=== PATIENT | female | born 1970 | race Caucasian/White ===

== ENCOUNTER 2023-04-12 22:33 | Emergency (ER) | payer MEDICAID, SELFPAY ==
[2023-04-12 22:39] VITALS: BP 112/73; PULSE 114; RESP 20; TEMP 36.5; O2SAT 98; BMI 38.7
--- NOTE | 2023-04-12 22:43 | ECG_ITS ---
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 Measurements Intervals [place] Rate: 109 P: 48 ME: 155 QRS: 64 QRSD: 75 T: 73 QT: 326 QTc: 439 Interpretive Statements SINUS TACHYCARDIA ABNORMAL RHYTHM ECG No previous ECG available for comparison Electronically Signed On 04-13-2023 14:18:10 PERITONEAL DIALYSIS REGISTERED NURSE by Denny Ambrose M.D. [id number]
--- NOTE | 2023-04-12 22:54 | ECG_ITS ---
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 Measurements Intervals [place] Rate: 77 P: 51 AK: 176 QRS: 41 QRSD: 86 T: 60 QT: 369 QTc: 420 Interpretive Statements SINUS RHYTHM LOW QRS VOLTAGE IN PRECORDIAL LEADS [QRS DEFLECTION < 1.0 mV IN CHEST LEADS] Compared to ECG 04/12/2023 22:49:56 Low QRS voltage now present Sinus tachycardia no longer present Electronically Signed On 04-13-2023 14:18:21 BLOCK CLEANER by Denny Ambrose M.D. [id number]
--- NOTE | 2023-04-12 23:13 | ED_ITS ---
Documented by User: GAIL Fernández 04/15/23 13:16 HPI - Chest Pain 2 General: Chief Complaint: Chest Pain Stated Complaint: Chest Pains Time Seen by Provider: 04/12/23 23:02 History of Present Illness: 52-year-old female comes in today with c omplaints of shortness of breath. Patient reports for the last 2 days she feels like she just cannot get her breath. Patient has a history of rheumatoid arthritis, high blood pressure, coronary artery disease, pulmonary embolism. Patient routinely smokes tobacco and THC. Patient is on Eliquis routinely for blood thinner. Patient's primary care is at the [facility] in [facility]. 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 Associated symptoms: Reports dyspnea Review of Systems 2 General: Reports: 10 or more systems reviewed and unremarkable except in HPI and below Resp: Reports: dyspnea Physical Exam 2 Const: COMMON NORMALS: alert HENMT: COMMON NORMALS: normocephalic HEAD & SCALP: normocephalic THROAT: posterior oropharynx normal Neck/C-Spine: COMMON NORMALS: full ROM Resp: COMMON NORMALS: normal respiratory effort and clear to auscultation bilaterally AUSCULTATION: clear to auscultation bilaterally Cardio: COMMON NORMALS: regular rhythm RATE: tachycardic RHYTHM: regular rhythm GI: PALPATION: No Tenderness to palpation present (GI) Back/Pelvis: COMMON NORMALS: thoracic and lumbar spine normal to inspection Extremity: COMMON NORMALS: full ROM Neuro: SENSORIUM/ORIENTATION: Yes alert Skin: COMMON NORMALS: turgor normal GENERAL SKIN EXAM: turgor normal Course 2 Vital Signs: Vital signs: Vital Signs Temperature 97.7 F 04/12/23 22:39 Pulse Rate 107 H 04/13/23 02:54 Respiratory Rate 17 04/13/23 02:54 Blood Pressure 132/94 04/13/23 02:54 Pulse Oximetry 96 04/13/23 02:54 Oxygen Delivery Me thod Room Air 04/13/23 01:30 MDM - Chest Pain Medical Decision Making 52-year-old female comes in today with shortness of breath x 2 days. Patient appears mildly unwell but not toxic. Patient appears no pain. Respirations are even lungs are clear to auscultation. Patient has some nasal congestion. Vital signs are normal except for some mild elevation in pulse of 114. Differential diagnosis includes but not limited to CHF, pneumonia, viral respiratory infection, upper respiratory infection, anxiety. Lab Data 04/12/23 23:17 04/12/23 23:17 Radiology Impressions Chest X-Ray 04/12/23 23:14 IMPRESSION: No acute findings. Laboratory Results WBC 8.34 10^3/uL (3.29-11.43) 04/12/23 23:17 RBC 5.12 10^6/uL (3.85-5.65) 04/12/23 23:17 Hgb 16.30 g/dL (11.27-16.99) 04/12/23 23:17 Hct 47.1 % (36-47) H 04/12/23 23:17 MCV 92.0 fl (85-98) 04/12/23 23:17 MCH 31.8 pg (27-33) 04/12/23 23:17 MCHC 34.6 g/dL (30-55) 04/12/23 23:17 RDW 12.5 % (12.1-15.1) 04/12/23 23:17 Plt Count 259 10^3/cmm (157-399) 04/12/23 23:17 MPV 10.1 fL (7.4-10.4) 04/12/23 23:17 Neut % (Auto) 61.7 % 04/12/23 23:17 Lymph % (Auto) 27.8 % 04/12/23 23:17 [place] % (Auto) 8.9 % 04/12/23 23:17 Eos % (Auto) 0.7 % 04/12/23 23:17 Baso % (Auto) 0.7 % 04/12/23 23:17 Neut # (Auto) 5.14 10^3/uL (1.8-7.7) 04/12/23 23:17 Lymph # (Auto) 2.3 10^3/uL (0.8-4.8) 04/12/23 23:17 [place] # (Auto) 0.7 10^3/uL (0.2-0.9) 04/12/23 23:17 Eos # (Auto) 0.1 10^3/uL (0.0-0.8) 04/12/23 23:17 Baso # (Auto) 0.1 10^3/uL (0.0-0.1) 04/12/23 23:17 Nucleated RBC % (auto) 0 % 04/12/23 23:17 Nucleated RBCs # 0.0 /100WBC 04/12/23 23:17 PT 15.90 SECONDS (12.1-14.9) H 04/12/23 23:17 INR 1.23 (0.8-1.2) H 04/12/23 23:17 APTT 33.7 SECONDS (23.9-36.7) 04/12/23 23:17 Sodium 136 mmol/L (136-145) 04/12/23 23:17 Potassium 4.0 mmol/L (3.5-5.1) 04/12/23 23:17 Chloride 100 mmol/L (98-107) 04/12/23 23:17 Carbon Dioxide 21 mmol/L (22-29) L 04/12/23 23:17 Anion Gap 19.0 (5-19) 04/12/23 23:17 BUN 16 mg/dL (6-20) 04/12/23 23:17 Creatinine 0.5 mg/dL (0.5-0.9) 04/12/23 23:17 GFR Calculation 129.1 mL/min (90-130) 04/12/23 23:17 Glucose 90 mg/dL (65-115) 04/12/23 23:17 Calculated Osmolality 283 mOsm/kg (285-295) L 04/12/23 23:17 Calcium 9.4 mg/dL (8.5-10.5) 04/12/23 23:17 Total Bilirubin 0.7 mg/dL (0.15-1.2) 04/12/23 23:17 AST 28 U/L (0-32) 04/12/23 23:17 ALT 23 U/L (0-33) 04/12/23 23:17 Alkaline Phosphatase 85 U/L (35-105) 04/12/23 23:17 Troponin T Baseline 20 ng/L (0-10) H 04/12/23 23:17 Troponin T 120 Minute 17.42 ng/L (0-10) H 04/13/23 01:35 Delta Troponin T -2.58 ABS# (0-10) L 04/13/23 01:35 NT-Pro-B Natriuret Pep 221 pg/mL (0-125) H 04/12/23 23:17 Total Protein 7.6 g/dL (6.6-8.7) 04/12/23 23:17 Albumin 4.1 g/dL (3.5-5.2) 04/12/23 23:17 Globulin 3.5 g/dL (1.3-4.6) 04/12/23 23:17 Influenza Type A Ag negative (Negative) 04/13/23 00:35 Influenza Type B Ag negative (Negative) 04/13/23 00:35 SARS-CoV-2 Ag (Rapid) negative (Negative) 04/13/23 00:35 Discharge Plan Discharge Patient Disposition: Home Clinical Impression: Congestion of upper airway Condition: Stable Prescriptions: New Mucinex 600 mg tablet extended release 12hr 600 mg PO Q12H PRN (Reason: congestion) Qty: 10 0RF albuterol sulfate 90 mcg/actuation HFA aerosol inhaler 2 inh INHALATION Q4H PRN (Reason: shortness of breath or wheezing) Qty: 6.7 1RF Discharge Orders: Discharge ED (Routine); Ordered 04/13/23 Ordered By: Calixto Painter Patient Instructions: Cold Symptoms (ED), Opioid Safety, Pain Management Activity Restrictions/Additional Instructions: The medicine given to you in the emergency department will help mobilize any extra fluid off your lungs. Take medication for airway congestion as directed. Use albuterol as needed for shortness of breath. Return for worsening symptoms despite treatment. See your doctor this week. Coding Level of Care Code ED Diesel Engine Pipe Fitter for Chg Fwd Documented by User: Calixto Painter, 04/13/23 05:46 HPI - Chest Pain 2 General: Chief Complaint: Chest Pain Stated Complaint: Chest Pains Time Seen by Provider: 04/12/23 23:02 Course 2 Vital Signs: Vital signs: Vital Signs Temperature 97.7 F 04/12/23 22:39 Pulse Rate 107 H 04/13/23 02:54 Respiratory Rate 17 04/13/23 02:54 Blood Pressure 132/94 04/13/23 02:54 Pulse Oximetry 96 04/13/23 02:54 Oxygen Delivery Me thod Room Air 04/13/23 01:30 MDM - Chest Pain Medical Decision Making 52-year-old female comes in today with shortness of breath x 2 days. Patient appears mildly unwell but not toxic. Patient appears no pain. Respirations are even lungs are clear to auscultation. Patient has some nasal congestion. Vital signs are normal except for some mild elevation in pulse of 114. Differential diagnosis includes but not limited to CHF, pneumonia, viral respiratory infection, upper respiratory infection, anxiety. This patient was originally seen by GAIL Gómez.? I agree with his history, evaluation, and treatment. Delta troponin is -2.5. She is given 40 mg of Lasix here. She is given an albuterol inhaler and Mucinex for the upper airway congestion. She will be allowed discharge. Return for worsening symptoms. Lab Data 04/12/23 23:17 04/12/23 23:17 Radiology Impressions Chest X-Ray 04/12/23 23:14 IMPRESSION: No acute findings. Laboratory Results WBC 8.34 10^3/uL (3.29-11.43) 04/12/23 23:17 RBC 5.12 10^6/uL (3.85-5.65) 04/12/23 23:17 Hgb 16.30 g/dL (11.27-16.99) 04/12/23 23:17 Hct 47.1 % (36-47) H 04/12/23 23:17 MCV 92.0 fl (85-98) 04/12/23 23:17 MCH 31.8 pg (27-33) 04/12/23 23:17 MCHC 34.6 g/dL (30-55) 04/12/23 23:17 RDW 12.5 % (12.1-15.1) 04/12/23 23:17 Plt Count 259 10^3/cmm (157-399) 04/12/23 23:17 MPV 10.1 fL (7.4-10.4) 04/12/23 23:17 Neut % (Auto) 61.7 % 04/12/23 23:17 Lymph % (Auto) 27.8 % 04/12/23 23:17 [place] % (Auto) 8.9 % 04/12/23 23:17 Eos % (Auto) 0.7 % 04/12/23 23:17 Baso % (Auto) 0.7 % 04/12/23 23:17 Neut # (Auto) 5.14 10^3/uL (1.8-7.7) 04/12/23 23:17 Lymph # (Auto) 2.3 10^3/uL (0.8-4.8) 04/12/23 23:17 [place] # (Auto) 0.7 10^3/uL (0.2-0.9) 04/12/23 23:17 Eos # (Auto) 0.1 10^3/uL (0.0-0.8) 04/12/23 23:17 Baso # (Auto) 0.1 10^3/uL (0.0-0.1) 04/12/23 23:17 Nucleated RBC % (auto) 0 % 04/12/23 23:17 Nucleated RBCs # 0.0 /100WBC 04/12/23 23:17 PT 15.90 SECONDS (12.1-14.9) H 04/12/23 23:17 INR 1.23 (0.8-1.2) H 04/12/23 23:17 APTT 33.7 SECONDS (23.9-36.7) 04/12/23 23:17 Sodium 136 mmol/L (136-145) 04/12/23 23:17 Potassium 4.0 mmol/L (3.5-5.1) 04/12/23 23:17 Chloride 100 mmol/L (98-107) 04/12/23 23:17 Carbon Dioxide 21 mmol/L (22-29) L 04/12/23 23:17 Anion Gap 19.0 (5-19) 04/12/23 23:17 BUN 16 mg/dL (6-20) 04/12/23 23:17 Creatinine 0.5 mg/dL (0.5-0.9) 04/12/23 23:17 GFR Calculation 129.1 mL/min (90-130) 04/12/23 23:17 Glucose 90 mg/dL (65-115) 04/12/23 23:17 Calculated Osmolality 283 mOsm/kg (285-295) L 04/12/23 23:17 Calcium 9.4 mg/dL (8.5-10.5) 04/12/23 23:17 Total Bilirubin 0.7 mg/dL (0.15-1.2) 04/12/23 23:17 AST 28 U/L (0-32) 04/12/23 23:17 ALT 23 U/L (0-33) 04/12/23 23:17 Alkaline Phosphatase 85 U/L (35-105) 04/12/23 23:17 Troponin T Baseline 20 ng/L (0-10) H 04/12/23 23:17 Troponin T 120 Minute 17.42 ng/L (0-10) H 04/13/23 01:35 Delta Troponin T -2.58 ABS# (0-10) L 04/13/23 01:35 NT-Pro-B Natriuret Pep 221 pg/mL (0-125) H 04/12/23 23:17 Total Protein 7.6 g/dL (6.6-8.7) 04/12/23 23:17 Albumin 4.1 g/dL (3.5-5.2) 04/12/23 23:17 Globulin 3.5 g/dL (1.3-4.6) 04/12/23 23:17 Influenza Type A Ag negative (Negative) 04/13/23 00:35 Influenza Type B Ag negative (Negative) 04/13/23 00:35 SARS-CoV-2 Ag (Rapid) negative (Negative) 04/13/23 00:35 All radiology interpretation(s) finalized by discharge Discharge Plan Discharge Patient Disposition: Home Clinical Impression: Congestion of upper airway Condition: Stable Prescriptions: New Mucinex 600 mg tablet extended release 12hr 600 mg PO Q12H PRN (Reason: congestion) Qty: 10 0RF albuterol sulfate 90 mcg/actuation HFA aerosol inhaler 2 inh INHALATION Q4H PRN (Reason: shortness of breath or wheezing) Qty: 6.7 1RF Discharge Orders: Discharge ED (Routine); Ordered 04/13/23 Ordered By: Calixto Painter Patient Instructions: Cold Symptoms (ED), Opioid Safety, Pain Management Activity Restrictions/Additional Instructions: The medicine given to you in the emergency department will help mobilize any extra fluid off your lungs. Take medication for airway congestion as directed. Use albuterol as needed for shortness of breath. Return for worsening symptoms despite treatment. See your doctor this week. Coding Level of Care Code ED Diesel Engine Pipe Fitter for Cruz Chow
--- NOTE | 2023-04-12 23:14 | XRR_ITS ---
PROCEDURE INFORMATION: Exam: XR Chest Exam date and time: 04/12/2023 11:17 PM Age: 52 years old Clinical indication: Shortness of breath; Patient HX: C/O SOB; Additional info: Short of breath TECHNIQUE: Imaging protocol: Radiologic exam of the chest. Views: 1 view. COMPARISON: No relevant prior studies available. FINDINGS: Lungs: Unremarkable. No consolidation. Pleural spaces: Unremarkable. No pleural effusion. No pneumothorax. Heart/Mediastinum: Unremarkable. No cardiomegaly. Bones/joints: Unremarkable. XR/XR chest 1V portable [id number] IMPRESSION: No acute findings.
[2023-04-12 23:35] LABS: Basophils # 0.1 10^3/uL (0.0-0.1); Basophils % 0.7 %; Eosinophils # 0.1 10^3/uL (0.0-0.8); Eosinophils % 0.7 %; Hematocrit 47.1 % (36-47); Lymphocytes # 2.3 10^3/uL (0.8-4.8); Lymphocytes % 27.8 %; Mean Corpuscular HGB Conc 34.6 g/dL (30-55); Mean Corpuscular Hemoglobin 31.8 pg (27-33); Mean Platelet Volume 10.1 fL (7.4-10.4); Monocytes # 0.7 10^3/uL (0.2-0.9); Monocytes % 8.9 %; Neutrophils # 5.14 10^3/uL (1.8-7.7); Neutrophils % 61.7 %; Nucleated Red Blood Cells % 0 %; Platelet Count 259 10^3/cmm (157-399); Red Blood Count 5.12 10^6/uL (3.85-5.65); Red Cell Distribution Width 12.5 % (12.1-15.1); White Blood Count 8.34 10^3/uL (3.29-11.43)
[2023-04-12 23:40] LABS: INR 1.23 (0.8-1.2)
[2023-04-12 23:41] LABS: Partial Thromboplastin Time 33.7 SECONDS (23.9-36.7)
[2023-04-12 23:51] LABS: Troponin(5th) Baseline 20 ng/L (0-10)
[2023-04-12 23:56] LABS: Alanine Aminotransferase 23 U/L (0-33); Albumin Level 4.1 g/dL (3.5-5.2); Alkaline Phosphatase 85 U/L (35-105); Aspartate Amino Transferase 28 U/L (0-32); Blood Urea Nitrogen 16 mg/dL (6-20); Calcium 9.4 mg/dL (8.5-10.5); Carbon Dioxide 21 mmol/L (22-29); Chloride 100 mmol/L (98-107); Creatinine Clr Calc Pharmacy 162.5355; Globulin 3.5 g/dL (1.3-4.6); Glomerular Filtration Rate 129.1 mL/min (90-130); Glucose 90 mg/dL (65-115); NT Pro B Type Natriuretic Pept 221 pg/mL (0-125); Osmolality Calculated 283 mOsm/kg (285-295); Sodium 136 mmol/L (136-145); Total Bilirubin 0.7 mg/dL (0.15-1.2); Total Protein 7.6 g/dL (6.6-8.7)
[2023-04-13 01:01] LABS: Influenza A by IFA negative (Negative); Influenza B by IFA negative (Negative); SARS Covid-2 Antigen negative (Negative)
[2023-04-13 01:15] VITALS: BP 107/81; PULSE 96; RESP 15; O2SAT 94
[2023-04-13 01:30] VITALS: BP 110/66; PULSE 67; RESP 12; O2SAT 96
[2023-04-13 02:11] LABS: Troponin 5 2HR 17.42 ng/L (0-10)
[2023-04-13 02:13] LABS: Troponin 5 2HR Delta -2.58 ABS# (0-10)
[2023-04-13 02:54] VITALS: BP 132/94; PULSE 107; RESP 17; O2SAT 96
== END 2023-04-13 02:57 | disposition home or self-care (01) ==
PROVIDERS: Nurse Practitioner Family; Emergency Provider Emergency Medicine
DX: R09.81 Nasal congestion (principal); Z11.52 Encounter for screening for COVID-19
CPT/HCPCS: 36415; 71045; 80053; 83880; 84484; 85025; 85610; 85730; 87426; 87804; 93005; 99285